=== PATIENT | female | born 1995 | race Caucasian/White ===

== ENCOUNTER 2018-07-25 11:23 | Emergency (ER) | payer OTHER ==
[~2018-07-25] VITALS: Ht 167.6 cm; Wt 70.5 kg
[~2018-07-25 11:23] MED LIST: BIRTH CONTROL PO; NO HOME MEDICATIONS; NORCO 325 MG-51 TAB PO; TAMIFLU 75MG75 MG PO
[2018-07-25 11:27] VITALS: BP 115/74; TEMP 98.4
[2018-07-25 12:30] VITALS: PULSE 84
== END 2018-07-25 12:30 | disposition home or self-care (01) ==
LOC: COL.ER 11:23
DX: F41.9 Anxiety disorder, unspecified (principal); F32.9 Major depressive disorder, single episode, unspecified; F12.90 Cannabis use, unspecified, uncomplicated

== ENCOUNTER → 2021-01-08 | Outpatient (CLI) | payer OTHER | LOC: MC.RAD 08:42 | DX: N63.20 Unspecified lump in the left breast, unspecified quadrant (principal) ==